=== PATIENT | female | born 1980 | race Caucasian/White ===

== ENCOUNTER 2016-12-10 20:00 | Emergency (ER) | payer OTHER ==
[~2016-12-10] VITALS: Ht 157.5 cm; Wt 69.1 kg
[~2016-12-10 20:00] MED LIST: ACTIGALL300 MG PO; AMBIEN10 MG PO; AMOX TR-K CLV1 EAC4 PO; AMOXICILLIN500 MG PO; BETA CAROT25000 UNIT PO; CEPHALEXIN500 MG PO; CHILD CHEW VIT1 EACH PO; CIPRO500 MG PO; CYANOCOBAL1000 MCG/2 IM; DAILY VALUE1 EACH PO; DAILY VITAMIN1 EAC4 PO; DETROL LA4 MG PO; DIAZEPAM5 MG PO; DILANTIN100 MG PO; DILAUDID2 MG PO; DILAUDID4 MG PO; DRISDOL50000 UNIT PO; DURAGESIC25 MCG TD; Dilaudid PO; ENDOCET 5-3251 EACH PO; FLAGYL500 MG; FLAGYL500 MG PO; FOLGARD PO; Folic Acid PO; HYDROCODON-ACE1 EAC7 PO; HYDROMORPHONE HC4 MG PO; IBUPROFEN800 MG PO; KEPPRA250 M1 PO; Keflex PO; LAMICTAL100 MG PO; LAMICTAL25 MG PO; LEVAQUIN750 MG PO; LEVOFLOXACIN500 MG PO; LEVSIN-SL0.125 MG SL; MARINOL10 MG PO; MIRAPEX0.125 MG PO; MIRAPEX0.25 MG PO; MOTRIN800 MG PO; MULTIVITAMIN1 EAC2 PO; MYCOSTATIN 100,60 ML PO; Motrin PO; NATALCARE RX1 TABLE1 PO; NEURONTIN300 MG PO; NORCO 5/3251 TABLET PO; ONDANSETRON HCL4 MG PO; OXYCODONE HCL10 MG PO; OXYCODONE HCL15 MG PO; OXYCODONE HCL5 MG; OXYCODONE-APAP1 EACH; OXYCODONE-APAP1 EACH PO; PANTOPRAZOLE SO40 MG PO; PERCOCET 10-321 EACH; PERCOCET 10/1 TABLET PO; PERCOCET 5/31 TABLET PO; PHENERGAN12.5 M1 PO; POTASSIUM-9999 MG PO; PRAMIPEXOLE D0.25 MG PO; PRAMIPEXOLE0.125 MG PO; PROAIR HFA8.5 GM IH; PROCARDIA10 MG PO; PROGESTERONE50 MG/ML IM; PROMETHAZINE HC25 M1 PO; PROTONIX40 MG PO; Percocet 5/325,Endoc PO; Phenergan PO; SENOKOT S,PE1 TABLET PO; SODIUM BICARBO325 MG PO; SUPER B WITH V1 EACH PO; TAMSULOSIN HCL0.4 MG PO; TORADOL10 MG PO; TYLENOL WITH C1 EACH PO; Tylenol Extra Streng PO; VALIUM5 MG; VALIUM5 MG PO; VITAMIN D400 UNI1 PO; ZOFRAN ODT4 MG PO; ZOFRAN ODT8 MG PO; ZOFRAN4 MG PO; ZOFRAN8 MG PO; ZOLPIDEM TARTRA10 MG PO; ZONEGRAN100 MG; ZONEGRAN100 MG PO; ZONISAMIDE100 MG PO; Zofran PO; Zonegran PO
[2016-12-10 20:54] LABS: HEMATOCRIT 46.7 % (36.0-46.0); MCHC 32.3 G/DL (30.0-36.0); MCV 92.7 FL (83-99); MEAN PLAT.VOLUME 9.7 uM^3 (9.5-12.4); PLATELET COUNT 221 K/uL (156-360); RBC DIS.WIDTH-CV 12.8 % (11.8-14.6); RBC DIS.WIDTH-SD 42.1 % (39-53); RED BLOOD COUNT 5.04 M/uL (3.80-5.20); WHITE BLOOD COUNT 9.8 K/uL (4.1-10.2)
[2016-12-10 21:13] LABS: ADD MIUA? YES; BILIRUBIN NEGATIVE; BLOOD LARGE; COLOR AMBER ((YELLOW)); GLUCOSE (STRIP) NEGATIVE; KETONES 20; LEUKOCYTES NEGATIVE; NITRITE NEGATIVE; PROTEIN (STRIP) 100; SPECIFIC GRAVITY 1.029 (1.000-1.030); UROBILINOGEN 0.2 MG/DL (0.2-1.0)
[2016-12-10 21:15] LABS: ANION GAP 12 MEQ/L (2-14); CHLORIDE 104 MEQ/L (99-109); POTASSIUM 3.7 MEQ/L (3.7-5.4); SAMPLE HEMOLYSIS CHECK 0; SAMPLE ICTERIC CHECK 0; SAMPLE LIPEMIA CHECK 0; SODIUM 138 MEQ/L (136-147)
[2016-12-10 21:20] LABS: GFR ESTIMATE (CALCULATED) > 59 mL/min/; GLUCOSE 80 mg/dL (70-99); UREA NITROGEN (BUN) 16 mg/dL (9-23)
[2016-12-10 22:00] LABS: RED BLOOD CELLS TNTC /HPF (0-5)
[2016-12-10 22:01] LABS: WHITE BLOOD CELLS 0-5 /HPF (0-5)
[2016-12-10 22:02] LABS: BACTERIA 2+ /HPF; EPITHELIAL CELLS 1+ /HPF; MUCUS 1+ /LPF; UCUL ADDED? NO
[2016-12-10 22:03] LABS: CASTS NONE SEEN /LPF; CRYSTALS NONE SEEN
[2016-12-11 00:21] VITALS: BP 126/83
== END 2016-12-11 00:22 | disposition home or self-care (01) ==
LOC: EME 20:00
DX: M54.5 Low back pain (principal); R31.9 Hematuria, unspecified; R11.2 Nausea with vomiting, unspecified; R10.30 Lower abdominal pain, unspecified; Z87.442 Personal history of urinary calculi; G89.29 Other chronic pain; Z79.891 Long term (current) use of opiate analgesic
CPT/HCPCS: 74176; 80048; 81003; 85027; 99281; 99283; J3010

== ENCOUNTER 2017-03-23 19:09 | Emergency (ER) | payer OTHER ==
[~2017-03-23] VITALS: Ht 157.5 cm; Wt 69.4 kg
[2017-03-23 22:09] LABS: HEMATOCRIT 43.4 % (36.0-46.0); MCH 30.2 PG (29.0-34.0); MCV 94.3 FL (83-99); MEAN PLAT.VOLUME 10.2 uM^3 (9.5-12.4); PLATELET COUNT 205 K/uL (156-360); RBC DIS.WIDTH-CV 12.7 % (11.8-14.6); RBC DIS.WIDTH-SD 43.9 % (39-53); WHITE BLOOD COUNT 9.2 K/uL (4.1-10.2)
[2017-03-23 22:21] LABS: CHLORIDE 108 mEq/L (99-109); POTASSIUM 3.8 mEq/L (3.7-5.4); SODIUM 143 mEq/L (136-147)
[2017-03-23 22:22] LABS: GLUCOSE 89 mg/dL (70-99)
[2017-03-23 22:24] LABS: ANION GAP 12 MEQ/L (2-14)
[2017-03-23 22:26] LABS: GFR ESTIMATE (CALCULATED) > 59 mL/min/
[2017-03-23 22:27] LABS: UREA NITROGEN (BUN) 8 mg/dL (9-23)
[2017-03-23 22:37] LABS: QUANTITATIVE HCG < 4.0 MIU/ML
[2017-03-24 00:48] LABS: ADD MIUA? YES; BILIRUBIN NEGATIVE; BLOOD LARGE; COLOR AMBER ((YELLOW)); GLUCOSE (STRIP) NEGATIVE; KETONES NEGATIVE; LEUKOCYTES MODERATE; NITRITE NEGATIVE; PROTEIN (STRIP) 100; SPECIFIC GRAVITY 1.021 (1.000-1.030); UROBILINOGEN 0.2 MG/DL (0.2-1.0)
[2017-03-24] MEDS ORDERED: PERCOCET 5/31 TABLET PO (01:19)
[2017-03-24] MEDS ORDERED: PROMETHAZINE HC25 M1 PO (01:19)
[2017-03-24] MEDS ORDERED: PHENERGAN25 MG PR (01:19)
[2017-03-24] MEDS ORDERED: CIPRO500 MG PO (01:22)
[2017-03-24 02:05] VITALS: BP 118/96
[2017-03-24 02:21] LABS: RED BLOOD CELLS TNTC /HPF (0-5)
[2017-03-24 02:22] LABS: EPITHELIAL CELLS 2+ /HPF; MUCUS NONE SEEN /LPF
[2017-03-24 02:23] LABS: BACTERIA 2+ /HPF; CASTS NONE SEEN /LPF; CRYSTALS NONE SEEN; UCUL ADDED? YES
[2017-03-24] MEDS ORDERED: ZONEGRAN100 MG PO (14:44)
[2017-03-24] MEDS ORDERED: FIORICET 50-301 EACH PO (15:07)
== END 2017-03-24 02:07 | disposition home or self-care (01) ==
LOC: EME 19:09
PROVIDERS: Physician Assistant
DX: N20.0 Calculus of kidney (principal); R51 Headache; N39.0 Urinary tract infection, site not specified; Z88.6 Allergy status to analgesic agent; Z91.041 Radiographic dye allergy status
CPT/HCPCS: 74020; 76770; 76775; 80048; 81003; 84702; 85027; 87086; 99281; 99285; J0595; J2550; J3010

== ENCOUNTER 2017-03-24 10:25 | Emergency (ER) | payer OTHER ==
[~2017-03-24] VITALS: Ht 157.5 cm; Wt 68.0 kg
[~2017-03-24 10:25] MED LIST changes: +PHENERGAN25 MG PR
[2017-03-24 12:08] LABS: BASOPHIL COUNT 0.1 K/uL (0-0.1); EOSINOPHIL (%) 0.1 % (0-5); HEMATOCRIT 42.3 % (36.0-46.0); IMMATURE GRANULOCYTE (%) 0.3 % (0.0-0.7); INSTRUMENT ABS NEUTROPHIL CT 5.9 K/uL; MCH 30.5 PG (29.0-34.0); MCHC 32.9 G/DL (30.0-36.0); MEAN PLAT.VOLUME 10.1 uM^3 (9.5-12.4); MONOCYTE (%) 4.3 % (3-12); MONOCYTE COUNT 0.3 K/uL (0-0.8); NEUTROPHIL (%) 81.5 % (45-76); NEUTROPHIL COUNT 5.9 K/uL (1.8-6.4); PLATELET COUNT 201 K/uL (156-360); RBC DIS.WIDTH-CV 12.6 % (11.8-14.6); RBC DIS.WIDTH-SD 43.5 % (39-53); RED BLOOD COUNT 4.55 M/uL (3.80-5.20); WHITE BLOOD COUNT 7.3 K/uL (4.1-10.2)
[2017-03-24 12:27] LABS: CHLORIDE 109 mEq/L (99-109); SODIUM 142 mEq/L (136-147)
[2017-03-24 12:28] LABS: GLUCOSE 94 mg/dL (70-99)
[2017-03-24 12:30] LABS: ANION GAP 12 MEQ/L (2-14)
[2017-03-24 12:32] LABS: GFR ESTIMATE (CALCULATED) > 59 mL/min/
[2017-03-24 12:33] LABS: UREA NITROGEN (BUN) 8 mg/dL (9-23)
[2017-03-24 14:00] VITALS: BP 142/93
[2017-03-24] MEDS ORDERED: ZONEGRAN100 MG PO (14:44)
[2017-03-24] MEDS ORDERED: FIORICET 50-301 EACH PO (15:07)
== END 2017-03-24 15:33 | disposition home or self-care (01) ==
LOC: EME 10:25
PROVIDERS: Emergency Medicine
DX: F41.9 Anxiety disorder, unspecified (principal); R56.9 Unspecified convulsions; R10.9 Unspecified abdominal pain
CPT/HCPCS: 70450; 74176; 80048; 81003; 85025; 93005; 99281; 99285; J2060; J2405; J7030